=== PATIENT | female | born 1950 | race Caucasian/White ===

== ENCOUNTER 2019-06-21 08:53 | Outpatient (CLI) | payer OTHER ==
[~2019-06-21 08:53] MED LIST: AMBIEN10 MG PO; CIPRO750 MG PO; DOCUSATE SODIU100 MG PO; GRALISE300 MG; NEURONTIN PO; ORPH100T PO; PERCOCET 5/3251 TAB PO; SYNTHROID50 MCG; ZANTAC150 MG PO
== END 2019-06-21 15:00 | disposition home or self-care (01) ==
LOC: LAB 08:53
DX: D51.1 Vitamin B12 deficiency anemia due to selective vitamin B12 malabsorption with proteinuria (principal); E03.8 Other specified hypothyroidism; D51.8 Other vitamin B12 deficiency anemias; D51.0 Vitamin B12 deficiency anemia due to intrinsic factor deficiency; I10 Essential (primary) hypertension; D69.49 Other primary thrombocytopenia; D68.8 Other specified coagulation defects

== ENCOUNTER 2019-06-21 09:48 | Outpatient (CLI) | payer OTHER | END 2019-06-21 09:57 | disposition home or self-care (01) | LOC: MAMO-SONO 09:48 | DX: Z12.31 Encounter for screening mammogram for malignant neoplasm of breast (principal); D69.49 Other primary thrombocytopenia; D51.1 Vitamin B12 deficiency anemia due to selective vitamin B12 malabsorption with proteinuria; N63.10 Unspecified lump in the right breast, unspecified quadrant; N63.20 Unspecified lump in the left breast, unspecified quadrant ==

== ENCOUNTER 2019-07-10 13:16 | Outpatient (CLI) | payer OTHER | END 2019-07-10 14:00 | disposition home or self-care (01) | LOC: SONOGRAMA 13:16 | DX: N60.11 Diffuse cystic mastopathy of right breast (principal); N60.12 Diffuse cystic mastopathy of left breast; R92.0 Mammographic microcalcification found on diagnostic imaging of breast ==

== ENCOUNTER 2019-10-11 07:59 | Outpatient (CLI) | payer OTHER | END 2019-10-11 08:04 | disposition home or self-care (01) | LOC: RAD 07:59 | DX: M25.531 Pain in right wrist (principal); M25.532 Pain in left wrist ==

== ENCOUNTER 2019-12-19 07:21 | Outpatient (CLI) | payer OTHER | END 2019-12-19 07:28 | disposition home or self-care (01) | LOC: LAB 07:21 | PROVIDERS: ATTEND Specialist | DX: E03.8 Other specified hypothyroidism (principal); D64.89 Other specified anemias; E78.2 Mixed hyperlipidemia ==

== ENCOUNTER 2019-12-19 08:31 | Outpatient (CLI) | payer OTHER | END 2019-12-19 08:36 | disposition home or self-care (01) | LOC: SONOGRAMA 08:31 | PROVIDERS: ATTEND Surgery | DX: N60.11 Diffuse cystic mastopathy of right breast (principal); N60.12 Diffuse cystic mastopathy of left breast ==

== ENCOUNTER → 2020-04-03 07:37 | Outpatient (CLI) | payer OTHER | END | disposition home or self-care (01) | LOC: LAB 07:37 | PROVIDERS: ATTEND Specialist | DX: D64.89 Other specified anemias (principal); D68.8 Other specified coagulation defects; Z12.11 Encounter for screening for malignant neoplasm of colon; E03.8 Other specified hypothyroidism ==

== ENCOUNTER 2020-07-02 07:08 | Outpatient (CLI) | payer OTHER | END 2020-07-02 07:21 | disposition home or self-care (01) | LOC: LAB 07:08 | PROVIDERS: ATTEND Specialist | DX: U07.1 COVID-19 (principal); E11.65 Type 2 diabetes mellitus with hyperglycemia; D64.89 Other specified anemias; N39.0 Urinary tract infection, site not specified; E78.2 Mixed hyperlipidemia; E03.8 Other specified hypothyroidism ==

== ENCOUNTER 2020-09-09 13:44 | Outpatient (CLI) | payer OTHER | END 2020-09-09 13:52 | disposition home or self-care (01) | LOC: MAMO-SONO 13:44 | PROVIDERS: ATTEND Surgery | DX: Z12.31 Encounter for screening mammogram for malignant neoplasm of breast (principal); Z87.898 Personal history of other specified conditions; N60.11 Diffuse cystic mastopathy of right breast; N60.12 Diffuse cystic mastopathy of left breast ==

== ENCOUNTER 2020-09-16 07:35 | Outpatient (CLI) | payer OTHER | END 2020-09-16 07:43 | disposition home or self-care (01) | LOC: LAB 07:35 | PROVIDERS: ATTEND Internal Medicine Hematology & Oncology | DX: E11.65 Type 2 diabetes mellitus with hyperglycemia (principal); D64.9 Anemia, unspecified; E03.9 Hypothyroidism, unspecified ==

== ENCOUNTER 2021-01-15 07:18 | Outpatient (CLI) | payer OTHER | END 2021-01-15 07:19 | disposition home or self-care (01) | LOC: LAB 07:18 | PROVIDERS: ATTEND Specialist | DX: E03.8 Other specified hypothyroidism (principal); D64.89 Other specified anemias; Z12.11 Encounter for screening for malignant neoplasm of colon; E11.65 Type 2 diabetes mellitus with hyperglycemia; Z55.9 Problems related to education and literacy, unspecified ==

== ENCOUNTER 2021-05-09 08:07 | Outpatient (CLI) | payer OTHER | END 2021-05-09 08:12 | disposition home or self-care (01) | LOC: LAB 08:07 | PROVIDERS: ATTEND Internal Medicine Hematology & Oncology | DX: D51.1 Vitamin B12 deficiency anemia due to selective vitamin B12 malabsorption with proteinuria (principal); D50.8 Other iron deficiency anemias; I10 Essential (primary) hypertension; R74.02 Elevation of levels of lactic acid dehydrogenase [LDH]; K76.89 Other specified diseases of liver; D63.8 Anemia in other chronic diseases classified elsewhere; D55.0 Anemia due to glucose-6-phosphate dehydrogenase [G6PD] deficiency; D51.8 Other vitamin B12 deficiency anemias; E03.8 Other specified hypothyroidism; C50.919 Malignant neoplasm of unspecified site of unspecified female breast; R97.8 Other abnormal tumor markers; R97.0 Elevated carcinoembryonic antigen [CEA]; B20 Human immunodeficiency virus [HIV] disease; B27.99 Infectious mononucleosis, unspecified with other complication; Z11.59 Encounter for screening for other viral diseases ==

== ENCOUNTER 2021-12-23 06:47 | Outpatient (CLI) | payer OTHER | END 2021-12-23 07:01 | disposition home or self-care (01) | LOC: LAB 06:47 | PROVIDERS: ATTEND Internal Medicine Hematology & Oncology | DX: E03.9 Hypothyroidism, unspecified (principal); E11.21 Type 2 diabetes mellitus with diabetic nephropathy; E11.65 Type 2 diabetes mellitus with hyperglycemia; N39.0 Urinary tract infection, site not specified; E78.2 Mixed hyperlipidemia; D64.9 Anemia, unspecified; D51.0 Vitamin B12 deficiency anemia due to intrinsic factor deficiency ==

== ENCOUNTER 2022-09-01 07:03 | Outpatient (CLI) | payer OTHER | END 2022-09-01 07:12 | disposition home or self-care (01) | LOC: LAB 07:03 | PROVIDERS: ATTEND Internal Medicine Hematology & Oncology | DX: D50.8 Other iron deficiency anemias (principal); R79.9 Abnormal finding of blood chemistry, unspecified; I10 Essential (primary) hypertension; R74.02 Elevation of levels of lactic acid dehydrogenase [LDH]; K76.89 Other specified diseases of liver; E03.8 Other specified hypothyroidism; E55.9 Vitamin D deficiency, unspecified; C50.919 Malignant neoplasm of unspecified site of unspecified female breast; R97.8 Other abnormal tumor markers; C25.9 Malignant neoplasm of pancreas, unspecified; D56.9 Thalassemia, unspecified; R97.1 Elevated cancer antigen 125 [CA 125]; D69.49 Other primary thrombocytopenia; D51.1 Vitamin B12 deficiency anemia due to selective vitamin B12 malabsorption with proteinuria ==

== ENCOUNTER 2024-01-19 07:57 | Outpatient (CLI) | payer OTHER ==
[~2024-01-19 07:57] MED LIST changes: +LEVOTHYROXINE25 MCG PO; +TIROSINT13 MCG PO
[2024-01-19 08:57] LABS: URINE APPEARANCE Clear; URINE BILIRRUBIN Negative (NEGATIVE); URINE BLOOD Negative; URINE COLOR Yellow; URINE GLUCOSE Negative (NEGATIVE); URINE KETONE Negative (NEGATIVE); URINE LEUKOCYTE Small; URINE NITRATE Negative; URINE PROTEIN Negative (NEGATIVE); URINE UROBILINOGEN 0.2 E.U./dl
[2024-01-19 09:02] LABS: URINE BACTERIA 46.6 uL (0.0-1933); URINE EPITHELIAL CELLS 7.7 uL (0.0-38.8); URINE RBC 3.9 uL (0.0-20.8); URINE WBC 10.8 uL (0.0-23.2)
[2024-01-19 09:02] LABS: HEMATOCRIT 38.2 % (36.0-45.00); HEMOGLOBIN 13.2 g/dL (12.0-15.00); MEAN CELL VOLUME 93.5 fL (80.00-100.00); MEAN CORPUSCULAR HEMOGLOBIN 32.3 pg (27.00-32.0); MEAN CORPUSCULAR HGB CONC 34.6 g/dl (32.0-36.0); PLATELET COUNT 151 K/uL (150-450); RED BLOOD COUNT 4.08 M/uL (4.00-6.00); RED CELL DISTRIBUTION WIDTH 12.6 % (11.5-14.5)
[2024-01-19 09:18] LABS: INR 1.07; PARTIAL THROMBOPLASTIN TIME 28.7 SECONDS (22.0-34.0); PROTHROMBIN TIME 11.6 SECONDS (9.0-11.5)
[2024-01-19 10:42] LABS: ALBUMIN 3.9 gm/dL (3.4-5.0); ALKALINE PHOSPHATASE 92 U/L (50-136); ALT/SGPT 19 U/L (12-78); ANION GAP 8 (10.0-20.0); AST/SGOT 21 U/L (15-37); BILIRUBIN TOTAL 1.72 mg/dL (0.3-1.2); BILIRUBIN,CONJUGATED 0.31 mg/dL (0.0-0.2); BILIRUBIN,UNCONJUGATED 1.41 mg/dL (0.0-0.6); BLOOD UREA NITROGEN 14 mg/dL (7-18); BUN CREA RATIO 22 (7.0-25.0); CALCIUM 8.9 mg/dL (8.5-10.1); CARBON DIOXIDE 31 mEq/L (21-32); CHLORIDE 106 mmol/L (98-107); CHOL HDL RATIO 2.8 (0-5.0); CHOLESTEROL 193 mg/dL (0-200); CREATININE SERUM 0.65 mg/dL (0.55-1.02); GFR 88.62; GLUCOSE FASTING 88 mg/dL (65-100); HDL 70 mg/dl (40-60); LDL 110 mg/dl (0-130); OSMOLALITY SERUM 281 MOSM/KG (275-295); POTASSIUM 4.08 mEq/L (3.5-5.1); SODIUM 141 mmol/L (136-145); TOTAL PROTEIN 6.9 gm/dL (6.4-8.2); TRIGLYCERIDES 65 mg/dL (0-150); VLDL 13 (0-39)
[2024-01-19 10:45] LABS: C-REACTIVE PROTEIN < 0.29 MG/DL (0.00-0.29)
== END 2024-01-19 08:07 | disposition home or self-care (01) ==
LOC: LAB 07:57
PROVIDERS: ATTEND Specialist
DX: E03.9 Hypothyroidism, unspecified (principal); N39.0 Urinary tract infection, site not specified; E78.2 Mixed hyperlipidemia; D64.9 Anemia, unspecified; D68.8 Other specified coagulation defects; M32.10 Systemic lupus erythematosus, organ or system involvement unspecified; K75.81 Nonalcoholic steatohepatitis (NASH); N25.81 Secondary hyperparathyroidism of renal origin; J45.998 Other asthma

== ENCOUNTER 2024-06-05 06:55 | Outpatient (CLI) | payer OTHER ==
[2024-06-05 08:03] LABS: HEMATOCRIT 40.1 % (36.0-45.00); HEMOGLOBIN 13.7 g/dL (12.0-15.00); MEAN CELL VOLUME 94.7 fL (80.00-100.00); MEAN CORPUSCULAR HEMOGLOBIN 32.3 pg (27.00-32.0); MEAN CORPUSCULAR HGB CONC 34.2 g/dl (32.0-36.0); PLATELET COUNT 158 K/uL (150-450); RED BLOOD COUNT 4.24 M/uL (4.00-6.00)
[2024-06-05 08:51] LABS: % SATURACION 37.8 % (15-50); ALBUMIN 3.9 gm/dL (3.4-5.0); BILIRUBIN TOTAL 1.32 mg/dL (0.3-1.2); CALCIUM 8.9 mg/dL (8.5-10.1); CREATININE SERUM 0.68 mg/dL (0.55-1.02); FERRITIN 94.1 NG/ML (8-252); GFR 84.12; POTASSIUM 4.16 mEq/L (3.5-5.1); T4 FREE 0.93 NG/ML (0.76-1.46); TOTAL PROTEIN 6.9 gm/dL (6.4-8.2); TSH 2.82 uIU/mL (0.358-3.74)
[2024-06-05 12:30] LABS: FOLIC ACID > 20.00 ng/ml (4.78-20)
[2024-06-05 13:13] LABS: MANUAL PLATELET COUNT 282
[2024-06-05 13:14] LABS: PLATELET ESTIMATE NORMAL (NORMAL)
[2024-06-06 10:05] LABS: CA 15-3 14.9 U/mL (0.0-25.0)
== END 2024-06-05 06:56 | disposition home or self-care (01) ==
LOC: LAB 06:55
PROVIDERS: ATTEND Internal Medicine Hematology & Oncology
DX: D50.8 Other iron deficiency anemias (principal); R79.9 Abnormal finding of blood chemistry, unspecified; I10 Essential (primary) hypertension; R74.02 Elevation of levels of lactic acid dehydrogenase [LDH]; K76.89 Other specified diseases of liver; E55.9 Vitamin D deficiency, unspecified; E03.8 Other specified hypothyroidism; C50.919 Malignant neoplasm of unspecified site of unspecified female breast; R97.8 Other abnormal tumor markers; C25.9 Malignant neoplasm of pancreas, unspecified; C56.9 Malignant neoplasm of unspecified ovary; R97.1 Elevated cancer antigen 125 [CA 125]; R97.0 Elevated carcinoembryonic antigen [CEA]; D69.49 Other primary thrombocytopenia; D51.1 Vitamin B12 deficiency anemia due to selective vitamin B12 malabsorption with proteinuria

== ENCOUNTER 2024-07-06 07:31 | Emergency (ER) | payer OTHER ==
[~2024-07-06] VITALS: Ht 172.7 cm; Wt 67.1 kg
[2024-07-06 07:44] VITALS: BP 146/84; O2SAT 98
[2024-07-06 08:34] LABS: HEMATOCRIT 39.6 % (36.0-45.00); HEMOGLOBIN 14.2 g/dL (12.0-15.00); MEAN CELL VOLUME 92.6 fL (80.00-100.00); MEAN CORPUSCULAR HEMOGLOBIN 33.1 pg (27.00-32.0); MEAN CORPUSCULAR HGB CONC 35.8 g/dl (32.0-36.0); PLATELET COUNT 175 K/uL (150-450); RED BLOOD COUNT 4.27 M/uL (4.00-6.00); RED CELL DISTRIBUTION WIDTH 13.5 % (11.5-14.5)
[2024-07-06 08:47] LABS: PARTIAL THROMBOPLASTIN TIME 25.9 SECONDS (22.0-34.0); PROTHROMBIN TIME 10.9 SECONDS (9.0-11.5)
[2024-07-06 08:48] LABS: ALBUMIN 4.1 gm/dL (3.4-5.0); BILIRUBIN TOTAL 1.23 mg/dL (0.3-1.2); CALCIUM 9.7 mg/dL (8.5-10.1); CREATININE SERUM 0.76 mg/dL (0.55-1.02); GFR 73.99; GLOBULINA 3.5 G/DL (2.4-3.5); POTASSIUM 4.11 mEq/L (3.5-5.1); TOTAL PROTEIN 7.6 gm/dL (6.4-8.2)
[2024-07-06] MEDS ORDERED: ACETAMINOPHEN 500 MG GEL..CAP PO ONE (12:43)
== END 2024-07-06 13:07 | disposition home or self-care (01) ==
LOC: ER 07:32
PROVIDERS: General Practice
DX: R53.81 Other malaise (principal); R07.9 Chest pain, unspecified; Z20.822 Contact with and (suspected) exposure to COVID-19; E03.8 Other specified hypothyroidism; Z88.5 Allergy status to narcotic agent; Z88.6 Allergy status to analgesic agent

== ENCOUNTER 2024-12-23 14:20 | Emergency (ER) | payer OTHER ==
[~2024-12-23] VITALS: Ht 172.7 cm; Wt 67.6 kg
[2024-12-23] MEDS ORDERED: 0.9 % SODIUM CHLORIDE 1,000 ML IV STA (16:42)
[2024-12-23] MEDS ORDERED: ONDANSETRON HCL 2 MG/ML VIAL IV STA (16:43)
[2024-12-23] MEDS ORDERED: FAMOtidine 10 MG/ML (4ML VIAL) IV PUSH STA (16:43)
[2024-12-23] MEDS ORDERED: HYOSCYAMINE SULFATE 0.125 MG TAB.SUBL SL ONE (16:45)
[2024-12-23 17:15] LABS: BASO % 0.5 % (0.1-1.2); EOS # 0.05 (0.04-0.54); EOS % 0.7 % (0.7-7.0); LYMPH # 1.01 (1.18-3.74); LYMPH % 13.4 % (19.3-53.1); MEAN PLATELET VOLUME 10.80 fl (9.4-12.4); MONO # 0.34 (0.24-0.82); MONO % 4.5 % (4.7-12.5); NEUT # 6.08 (1.56-6.13); NEUT % 80.8 % (34.0-71.1); RED CELL DISTRIBUTION WIDTH 12.1 % (11.6-14.4)
[2024-12-23 17:43] LABS: ALT/SGPT 25.0 U/L (12-78); AST/SGOT 21.0 U/L (15-37); BILIRUBIN TOTAL 1.86 mg/dL (0.3-1.2); BUN CREA RATIO 25.0 (7.0-25.0); CREATININE SERUM 0.65 mg/dL (0.55-1.02); GFR 88.62; GLOBULINA 3.3 G/DL (2.4-3.5); GLUCOSE FASTING 96.0 mg/dL (65-100); OSMOLALITY SERUM 286.0 MOSM/KG (275-295)
== END 2024-12-23 19:08 | disposition home or self-care (01) ==
LOC: ER 14:20
DX: K52.89 Other specified noninfective gastroenteritis and colitis (principal); Z88.6 Allergy status to analgesic agent

== ENCOUNTER 2024-12-27 10:14 | Outpatient (CLI) | payer OTHER | END 2024-12-27 10:34 | disposition home or self-care (01) | LOC: TOM 10:14 | PROVIDERS: ATTEND Specialist | DX: S06.5X9A Traumatic subdural hemorrhage with loss of consciousness of unspecified duration, initial encounter (principal); S02.30XA Fracture of orbital floor, unspecified side, initial encounter for closed fracture; S02.121A Fracture of orbital roof, right side, initial encounter for closed fracture ==

== ENCOUNTER 2024-12-28 07:16 | Outpatient (CLI) | payer OTHER ==
[2024-12-28 08:12] LABS: BASO % 1.4 % (0.1-1.2); EOS # 0.07 (0.04-0.54); EOS % 2.0 % (0.7-7.0); LYMPH # 1.03 (1.18-3.74); LYMPH % 29.6 % (19.3-53.1); MEAN PLATELET VOLUME 11.40 fl (9.4-12.4); MONO # 0.26 (0.24-0.82); MONO % 7.5 % (4.7-12.5); NEUT # 2.06 (1.56-6.13); NEUT % 59.2 % (34.0-71.1); RED CELL DISTRIBUTION WIDTH 12.1 % (11.6-14.4)
[2024-12-28 08:30] LABS: INR 1.05
[2024-12-28 08:38] LABS: CREATININE URINE RANDOM 150.0 MG/DL (30-125)
[2024-12-28 08:50] LABS: URINE APPEARANCE Clear; URINE BILIRRUBIN Negative (NEGATIVE); URINE BLOOD Negative; URINE COLOR Yellow; URINE GLUCOSE Negative (NEGATIVE); URINE KETONE Trace (NEGATIVE); URINE LEUKOCYTE Trace; URINE NITRATE Negative; URINE PROTEIN Negative (NEGATIVE); URINE UROBILINOGEN 0.2 E.U./dl
[2024-12-28 08:54] LABS: URINE BACTERIA 19.1 uL (0.0-1933); URINE EPITHELIAL CELLS 7.8 uL (0.0-38.8); URINE RBC 7.7 uL (0.0-20.8); URINE WBC 22.8 uL (0.0-23.2)
[2024-12-28 09:02] LABS: URINE CAST 0.29 uL (0.0-1.40)
[2024-12-28 09:27] LABS: ALT/SGPT 22 U/L (12-78); AST/SGOT 17 U/L (15-37); BILIRUBIN TOTAL 1.15 mg/dL (0.3-1.2); BUN CREA RATIO 17 (7.0-25.0); CHOL HDL RATIO 2.5 (0-5.0); CREATININE SERUM 0.60 mg/dL (0.55-1.02); FREE TRIODOTIRONINE 2.35 pg/ml (2.18-3.98); GFR 97.20; GLOBULINA 2.9 G/DL (2.4-3.5); GLUCOSE FASTING 95 mg/dL (65-100); HDL 62 mg/dl (40-60); LDL 79 mg/dl (0-130); OSMOLALITY SERUM 284 MOSM/KG (275-295); T4 FREE 1.05 NG/ML (0.76-1.46); TSH 1.740 uIU/mL (0.358-3.74); VLDL 11 (0-39)
== END 2024-12-28 07:21 | disposition home or self-care (01) ==
LOC: LAB 07:16
PROVIDERS: ATTEND Specialist
DX: E03.9 Hypothyroidism, unspecified (principal); N39.9 Disorder of urinary system, unspecified; E78.2 Mixed hyperlipidemia; E11.65 Type 2 diabetes mellitus with hyperglycemia; Z12.11 Encounter for screening for malignant neoplasm of colon; D64.9 Anemia, unspecified; J45.998 Other asthma; D68.8 Other specified coagulation defects; N39.0 Urinary tract infection, site not specified; E11.21 Type 2 diabetes mellitus with diabetic nephropathy; E55.9 Vitamin D deficiency, unspecified

== ENCOUNTER 2025-01-08 10:21 | Outpatient (CLI) | payer OTHER | END 2025-01-08 10:26 | disposition home or self-care (01) | LOC: SONOGRAMA 10:21 | PROVIDERS: ATTEND Specialist | DX: E03.9 Hypothyroidism, unspecified (principal) ==

== ENCOUNTER 2025-03-12 07:06 | Outpatient (CLI) | payer OTHER ==
[2025-03-12 08:05] LABS: BASO % 1.2 % (0.1-1.2); EOS # 0.08 (0.04-0.54); EOS % 2.3 % (0.7-7.0); LYMPH # 0.94 (1.18-3.74); LYMPH % 27.2 % (19.3-53.1); MEAN PLATELET VOLUME 11.20 fl (9.4-12.4); MONO # 0.23 (0.24-0.82); MONO % 6.7 % (4.7-12.5); NEUT # 2.15 (1.56-6.13); NEUT % 62.3 % (34.0-71.1); RED CELL DISTRIBUTION WIDTH 12.1 % (11.6-14.4)
[2025-03-12 08:40] LABS: ALT/SGPT 23.0 U/L (12-78); AST/SGOT 19.0 U/L (15-37); BILIRUBIN TOTAL 1.4 mg/dL (0.3-1.2); BUN CREA RATIO 18.0 (7.0-25.0); CREATININE SERUM 0.76 mg/dL (0.55-1.02); FE 146.0 ug/dl (50-170); GFR 73.79; GLOBULINA 3.0 G/DL (2.4-3.5); GLUCOSE FASTING 111.0 mg/dL (65-100); LDH 178.0 U/L (84-246); OSMOLALITY SERUM 284.0 MOSM/KG (275-295); T4 FREE 1.03 NG/ML (0.76-1.46); TSH 2.64 uIU/mL (0.358-3.74)
[2025-03-12 15:53] LABS: FOLIC ACID > 20.00 ng/ml (4.78-20); VITAMIN D3 25 HYDROXY 53.53 ng/ml (30-120)
[2025-03-13 15:07] LABS: ANTI THYROID PEROXIDASE < 9 IU/mL (0-34)
[2025-03-14 17:07] LABS: PARIETAL CELL ANTIBODIES 1.2 Units (0.0-20.0)
== END 2025-03-12 07:09 | disposition home or self-care (01) ==
LOC: LAB 07:06
PROVIDERS: ATTEND Internal Medicine Hematology & Oncology
DX: D50.8 Other iron deficiency anemias (principal); D69.49 Other primary thrombocytopenia; D51.1 Vitamin B12 deficiency anemia due to selective vitamin B12 malabsorption with proteinuria; D51.3 Other dietary vitamin B12 deficiency anemia; E03.8 Other specified hypothyroidism; I10 Essential (primary) hypertension; R74.02 Elevation of levels of lactic acid dehydrogenase [LDH]; K76.89 Other specified diseases of liver; E11.9 Type 2 diabetes mellitus without complications; D55.0 Anemia due to glucose-6-phosphate dehydrogenase [G6PD] deficiency; E06.3 Autoimmune thyroiditis

== ENCOUNTER 2025-03-22 11:08 | Outpatient (CLI) | payer OTHER | END 2025-03-22 11:10 | disposition home or self-care (01) | LOC: RAD 11:08 | PROVIDERS: ATTEND Specialist | DX: M84.342A Stress fracture, left hand, initial encounter for fracture (principal) ==